=== PATIENT | female | born 1945 | race Caucasian/White ===

== ENCOUNTER → 2017-10-09 | Outpatient (CLI) | payer MEDICARE, BC ==
[~2017-10-09] MED LIST: ALTACE 10MG TAB10 MG PO; ALTACE10 MG PO; ARIMIDEX; ARIMIDEX1 MG PO; ATORVASTATIN; FERROUS SU325 MG/TAB PO; FOLIC ACID 40400 MCG PO; FOSAMAX PO; HCTZ; HCTZ PO; HCTZ12.5TAB PO; KLOR-CON 1010 MEQ PO; LEVOTHYROXIN0.075 MG PO; LEVOXYL0.2 MG PO; LIPITOR 10MG10 MG PO; LORTAB 7.5/5001 TAB PO; LOW DOSE ASPIRI81 MG PO; MULTI VITAMINS1 TAB PO; PAROXETINE10 MG PO; PAXIL 10MG10 MG PO; SINGULAIR 110 MG/TAB PO; SINGULAIR10 MG PO; THYROXIN PO; VITAMIN B1225 MCG PO; VITAMIN C BUFF500 MG PO; VITAMIN D1000 IU PO; ZANTAC 150150 MG PO; ZANTAC 150MG T150 MG PO; ZYRTEC 10MG10 MG PO; ZYRTEC10 M1 PO
== END ==
LOC: MC.RAD 09:05
DX: Z12.31 Encounter for screening mammogram for malignant neoplasm of breast (principal); N64.89 Other specified disorders of breast; Z98.890 Other specified postprocedural states; Z85.3 Personal history of malignant neoplasm of breast

== ENCOUNTER → 2018-10-15 | Outpatient (CLI) | payer MEDICARE, BC | LOC: MC.RAD 10:58 | DX: Z12.31 Encounter for screening mammogram for malignant neoplasm of breast (principal); Z85.3 Personal history of malignant neoplasm of breast ==

== ENCOUNTER → 2018-10-23 | Outpatient (CLI) | payer MEDICARE, BC | LOC: MC.RAD 12:56 | DX: C50.912 Malignant neoplasm of unspecified site of left female breast (principal); N64.89 Other specified disorders of breast | CPT/HCPCS: G0279 ==

== ENCOUNTER → 2019-04-24 | Outpatient (CLI) | payer MEDICARE, BC | LOC: MC.RAD 13:54 | DX: C50.912 Malignant neoplasm of unspecified site of left female breast (principal) | CPT/HCPCS: G0279 ==

== ENCOUNTER → 2019-10-31 | Outpatient (CLI) | payer MEDICARE, BC | LOC: MC.RAD 11:24 | DX: Z12.31 Encounter for screening mammogram for malignant neoplasm of breast (principal); Z98.82 Breast implant status; Z98.890 Other specified postprocedural states; Z85.3 Personal history of malignant neoplasm of breast ==

== ENCOUNTER → 2020-07-24 | Outpatient (CLI) | payer MEDICARE, BC | LOC: MC.RAD 11:00 | DX: N60.02 Solitary cyst of left breast (principal); Z98.890 Other specified postprocedural states; Z85.3 Personal history of malignant neoplasm of breast ==

== ENCOUNTER → 2021-11-04 | Outpatient (CLI) | payer MEDICARE, BC | LOC: MC.RAD 09:56 | DX: Z12.31 Encounter for screening mammogram for malignant neoplasm of breast (principal); Z98.890 Other specified postprocedural states ==

== ENCOUNTER 2023-01-10 11:29 | Emergency (ER) | payer MEDICARE, BC ==
[~2023-01-10] VITALS: Ht 172.7 cm; Wt 88.2 kg
[2023-01-10 11:29] VITALS: TEMP 97.9
[2023-01-10 14:43] VITALS: BP 132/78; PULSE 85
== END 2023-01-10 14:50 | disposition home or self-care (01) ==
LOC: COL.ER 11:29
DX: S12.000A Unspecified displaced fracture of first cervical vertebra, initial encounter for closed fracture (principal); S01.01XA Laceration without foreign body of scalp, initial encounter; W23.0XXA Caught, crushed, jammed, or pinched between moving objects, initial encounter; W01.198A Fall on same level from slipping, tripping and stumbling with subsequent striking against other object, initial encounter
CPT/HCPCS: J2405

== ENCOUNTER → 2023-11-09 | Outpatient (CLI) | payer MEDICARE, BC | LOC: MC.RAD 09:15 | DX: Z12.31 Encounter for screening mammogram for malignant neoplasm of breast (principal) ==